=== PATIENT | female | born 1965 | race Caucasian/White ===

== ENCOUNTER → 2017-03-26 | Outpatient (CLI) | payer OTHER ==
[~2017-03-26] MED LIST: ALBUTEROL17 GM INH; ALLERGY10 M1 PO; AMITRIPTYLINE H25 MG PO; ASPIRIN EC81 M1 PO; ASPIRIN PO; ASPIRIN81 M2 PO; BREO INHALER; COMBIVENT INH14.7 GM INH; DICYCLOMINE HCL10 MG PO; FLUOXETINE HCL20 M1 PO; GABAPENTIN400 M2 PO; KEFLEX500 M1 PO; MOBIC PO; OMEPRAZOLE20 M2 PO; PAXIL PO; PERCOCET5/325 PO; PHENERGAN25 M1 PO; PRILOSEC PO; PRILOSEC20 M1 PO; PRILOSEC20 MG PO; PROAIR HFA8.5 GM INH; PROTONIX40 MG/BLIS PO; PROZAC PO; SELFEMRA20 MG PO; SYMBICORT INH; TIZANIDINE HCL6 MG PO; ULTRAM PO; VOLTAREN75 MG PO
== END | disposition home or self-care (01) ==
LOC: CECH 12:41
DX: R06.01 Orthopnea (principal); I51.7 Cardiomegaly
CPT/HCPCS: 93306

== ENCOUNTER 2017-05-03 13:27 | Emergency (ER) | payer OTHER ==
--- NOTE | ~2017-05-03 | CT2 ---
[facility] A Service of [facility] RADIOLOGY TEXT RESULTS PATIENT: DEMETRIA MCKEON LOCATION: [facility] : 63 UNIT #: [id number] AGE: [address]: Christina Holland SEX: F ORDER DR: [id number] [id number] [facility]. [place], [place] [address] [id number] MR#: [id number] Acc #: [id number] NAME: DEMETRIA MCKEON : 1965 SEX: F STUDY DATE/TIME: 05/03/2017 16:17 UNIT: [facility] ROOM: STUDY DESCRIPTION: CT Abd and Pelv W Cont Attending Physician: Christina Holland P.A.-C. Ordering Physician: Christina Holland P.A.-C. Primary Care Physician: Guilherme Hollingsworth M.D. MEDICAL IMAGING REPORT This report is preliminary unless electronic signature is present EXAM CT of the abdomen and pelvis with contrast. INDICATION Pelvic pain since helping with a move 2 weeks ago. Pain is progressively worsening. PROCEDURE Contrast-enhanced CT of the abdomen and pelvis. This CT exam was performed with one or more of the following radiation dose reduction techniques: automatic exposure control, adjustment of mA and/or kV according to patient size, and iterative reconstruction. COMPARISON 11/29/15 FINDINGS ABDOMEN WITH CONTRAST: Tiny nodule left lung base is unchanged. Tiny cyst in the right hepatic lobe is stable. The spleen, kidneys, adrenal glands, pancreas unremarkable. Previous cholecystectomy. Sigmoid diverticula. Suspected mild inflammatory change in the proximal sigmoid colon. Appendix is normal. PELVIS WITH CONTRAST: No pelvic mass or fluid. No aggressive-appearing bone lesion. IMPRESSION Very mild acute diverticulitis in the proximal sigmoid colon. No evidence for abscess or perforation. Dictated by... [facility] A Service of [facility] RADIOLOGY TEXT RESULTS PATIENT: DEMETRIA MCKEON LOCATION: [facility] : 63 UNIT #: [id number] AGE: [address]: Holland,Christina E PA SEX: F ORDER DR: Adiel Marr M.D. THIS IS AN ELECTRONICALLY VERIFIED REPORT Adiel Marr M.D. at 05/03/2017 10:23 PM NOELLE/joanne TD: 05/03/2017 20:38 JOB #: [id number] MEDICAL IMAGING REPORT Page 1 of 1 COPY
[~2017-05-03 13:27] MED LIST changes: -ALLERGY10 M1 PO; -BREO INHALER; -GABAPENTIN400 M2 PO; -SELFEMRA20 MG PO; -VOLTAREN75 MG PO
[2017-05-03 14:25] LABS: URINE SOURCE CLEAN CATCH
[2017-05-03 14:31] LABS: URINE APPEARANCE CLEAR; URINE BILIRUBIN NEG (NEG); URINE BLOOD TRACE (NEG); URINE COLOR DK YELLOW; URINE GLUCOSE NEG (NEG); URINE KETONE NEG (NEG); URINE LEUKOCYTE ESTERASE NEG (NEG); URINE NITRATE POS (NEG); URINE PROTEIN NEG (NEG); URINE SPECIFIC GRAVITY 1.005 (1.003-1.035)
[2017-05-03 14:33] LABS: CULTURE INDICATED? YES; U HYALINE CASTS AUWI 0-2 /[LPF]; URBCS1 AUWI 0-2 /[HPF] (0-2); URINE BACTERIA AUWI 1+ (NEGATIVE); URINE SQUAMOUS EPITHELIAL CELL OCC /[HPF]; UWBCS1 AUWI 0-2 (0-5)
[2017-05-03 15:39] LABS: BASOPHIL# 0.2 X10e3 (0-0.3); BASOPHIL% 1.3 % (0-2.5); DIFF IND NO; EOSINOPHIL# 1.9 X10e3 (0-0.7); EOSINOPHIL% 16.2 % (0.0-7.0); HEMOGLOBIN 12.2 gm/dL (12.0-16.0); LYMPHOCYTE# 1.8 X10e3 (1.0-3.5); LYMPHOCYTE% 15.5 % (17.0-45.0); MEAN CELL VOLUME 84.5 FL (83-96); MEAN CORPUSCULAR HEMOGLOBIN 26.4 PG (28-34); MEAN CORPUSCULAR HGB CONC 31.3 g/dL (30-36); MEAN PLATELET VOLUME 7.4 FL (6.5-11.5); MONOCYTE# 0.6 X10e3 (0-1.0); MONOCYTE% 4.9 % (3.0-12.0); NEUTROPHIL# 7.3 X10e3 (1.5-7.1); NEUTROPHIL% 62.1 % (40-75); PLATELET COUNT 305 X10e3 (140-420); RED BLOOD COUNT 4.62 X10e (3.90-5.30); RED CELL DISTRIBUTION WIDTH 16.2 % (11.0-15.5); WHITE BLOOD COUNT 11.8 X10e3 (4.0-10.5)
[2017-05-03 15:52] LABS: BUN/CREATININE RATIO 7.77; CALCIUM SERUM 8.8 mg/dL (8.4-10.2); CREATININE SERUM 0.9 mg/dL (0.6-1.4); GLOM FILT RATE Estimated 73.6 mL/min (>60); POTASSIUM 3.8 mmol/L (3.5-5.1)
[2017-06-28] MEDS ORDERED: PRILOSEC PO (14:36)
[2017-06-28] MEDS ORDERED: VOLTAREN75 MG PO (14:37)
[2017-06-28] MEDS ORDERED: GABAPENTIN400 M2 PO (14:37)
[2017-06-28] MEDS ORDERED: BREO INHALER (14:38)
[2017-06-28] MEDS ORDERED: SELFEMRA20 MG PO (14:39)
[2017-06-28] MEDS ORDERED: ALLERGY10 M1 PO (14:39)
[2017-06-28] MEDS ORDERED: ASPIRIN EC81 M1 PO (14:40)
== END 2017-05-03 17:17 | disposition home or self-care (01) ==
LOC: CED 13:27 → CFTX 13:27 → CED 14:06 → CFTX 17:17
PROVIDERS: Physician Assistant
DX: K57.32 Diverticulitis of large intestine without perforation or abscess without bleeding (principal); N39.0 Urinary tract infection, site not specified; E11.9 Type 2 diabetes mellitus without complications; J44.9 Chronic obstructive pulmonary disease, unspecified; Z88.2 Allergy status to sulfonamides; Z91.013 Allergy to seafood; Z88.8 Allergy status to other drugs, medicaments and biological substances; Z90.49 Acquired absence of other specified parts of digestive tract
CPT/HCPCS: 36415; 74177; 80048; 81003; 84703; 85025; 87086; 96372; 96374; 99284; J1885; Q9967

== ENCOUNTER → 2017-05-18 | Outpatient (CLI) | payer OTHER ==
[~2017-05-18] MED LIST changes: +ALLERGY10 M1 PO; +BREO INHALER; +GABAPENTIN400 M2 PO; +SELFEMRA20 MG PO; +VOLTAREN75 MG PO
== END | disposition home or self-care (01) ==
LOC: CLAB 11:52
DX: K62.5 Hemorrhage of anus and rectum (principal); R10.9 Unspecified abdominal pain
CPT/HCPCS: 87045; 87177; 87209; 87427; 87493; 87899

== ENCOUNTER → 2017-08-02 | Day surgery (SDC) | payer OTHER ==
--- NOTE | ~2017-08-02 | OR ---
Unit #: [id number] #: [id number] Patient: DEMETRIA MCKEON [id number] [address] [id number] O MR#: [id number] NAME: DEMETRIA MCKEON. ROOM: Date of Procedure: 08/02/2017 Admission Date: 08/02/2017 Surgeon: Phani Baca M.D. : 1965 Attending Physician: Phani Baca M.D. Primary Care Physician: Guilherme Hollingsworth M.D. PROCEDURE OPERATIVE NOTE PREOPERATIVE DIAGNOSES 1. Abdominal bloating. 2. Upper abdominal pain. 3. Intermittent blood in stool. 4. History of colonic polyps. POSTOPERATIVE DIAGNOSES Same. PROCEDURE 1. Esophagogastroduodenoscopy. 2. Biopsy of antrum for Helicobacter pylori testing. 3. Colonoscopy to cecum. SURGEON Phani Baca M.D. ANESTHESIA Monitored anesthesia. FINDINGS The patient was found to have a small hiatal hernia, some mild gastritis and mild Schatzki's ring. At colonoscopy, the patient had a poor prep. However, no gross abnormalities were seen other than sigmoid diverticulosis and mild internal hemorrhoids. SPECIMEN Sent to pathology. COMPLICATIONS None apparent. CONDITION Patient tolerated the procedure well. INDICATIONS The patient is a 51-year-old white female who presents at this time with upper abdominal bloating and abdominal pain and discomfort as well as some intermittent bright red blood in her stool. The patient had also had a history of colonic polyps. The patient presents at this time for evaluation by upper and lower endoscopy. Unit #: [id number] #: [id number] Patient: DEMETRIA MCKEON OPERATION After obtaining informed consent, the patient was brought to the endoscopy suite and after adequate monitored anesthesia care, had the endoscope placed through the mouth and upper esophagus under direct vision. It was advanced slowly to the second and third portion of the duodenum without difficulty and with the lumen always in view. The duodenum was normal as was the duodenal bulb. The pylorus opened normally. There was some mild distal gastritis present and a biopsy was obtained for Helicobacter pylori testing. On retroflexion back to the GE junction, the patient was found to have a small hiatal hernia. No other abnormalities were found in the proximal third, middle third or incisura. On pulling back above the GE junction, there was no stenosis, stricture, or neoplasm seen. There was a mild Schatzki ring. There was no significant esophagitis. The remaining portion of the esophagus was within normal limits. Laryngeal structures were grossly normal as viewed from above. At this point in time, the colonoscope was placed through the anus and slowly advanced to the level of cecum without difficulty with lumen always in view. The patient had a poor prep. It required quite a bit of irrigation to clear out the large amount of thick green liquid. No abnormalities were seen in the cecum or area of the ileocecal valve. The ascending colon was normal as was the hepatic flexure, transverse colon, splenic flexure, and descending colon. The patient had sigmoid diverticulosis which was moderately severe but no diverticulitis was evident. The rectosigmoid and rectum were all within normal limits. On retroflexing the rectum to the anorectal junction revealed some mild internal hemorrhoids. The scope was removed without difficulty. The patient tolerated the procedure well and went from the endoscopy suite to the recovery area in stable condition. RECOMMENDATIONS High-fiber diet, lots of liquids, Tucks wipes p.r.n. Gastroesophageal reflux sheet given, diverticular sheet given. Call Sunday for pathology. Dictated by... Serafin Schmidt/verna TD: 08/03/2017 07:38 JOB #: [id number] CC: [facility] PROCEDURE OPERATIVE NOTE Page 1 of 1 X Phani Baca MD X PROCEDURE OPERATIVE NOTE
== END | disposition home or self-care (01) ==
LOC: COPS 05:32
DX: K44.9 Diaphragmatic hernia without obstruction or gangrene (principal); K29.70 Gastritis, unspecified, without bleeding; K22.2 Esophageal obstruction; K57.30 Diverticulosis of large intestine without perforation or abscess without bleeding; K64.8 Other hemorrhoids; Z86.010 Personal history of colon polyps; K59.00 Constipation, unspecified; K21.9 Gastro-esophageal reflux disease without esophagitis; I10 Essential (primary) hypertension; J44.9 Chronic obstructive pulmonary disease, unspecified; F17.200 Nicotine dependence, unspecified, uncomplicated; F41.9 Anxiety disorder, unspecified; M19.90 Unspecified osteoarthritis, unspecified site; D64.9 Anemia, unspecified; E11.9 Type 2 diabetes mellitus without complications; M32.9 Systemic lupus erythematosus, unspecified; Z79.899 Other long term (current) drug therapy; Z87.440 Personal history of urinary (tract) infections; Z88.2 Allergy status to sulfonamides; Z98.51 Tubal ligation status; Z88.8 Allergy status to other drugs, medicaments and biological substances; Z91.013 Allergy to seafood
CPT/HCPCS: 82947; 87077